=== PATIENT | female | born 1990 | race Caucasian/White ===

== ENCOUNTER 2016-10-26 03:06 | Emergency (ER) | payer OTHER ==
[~2016-10-26 03:06] MED LIST: CIPRO PO; IBUPROFEN PO; KEFLEX500 MG PO; NO HOME MEDICATIONS; PRENATAL VITAMI1 TA3 PO; PRENATAL1 TA1 PO; PYRIDIUM PO; VICODIN 5/500 T1 TAB PO
== END 2016-10-26 03:52 | disposition home or self-care (01) ==
LOC: SED 03:06
DX: T40.1X1A Poisoning by heroin, accidental (unintentional), initial encounter (principal); F17.200 Nicotine dependence, unspecified, uncomplicated; Y92.9 Unspecified place or not applicable
CPT/HCPCS: 99282

== ENCOUNTER 2016-12-17 02:41 | Emergency (ER) | payer OTHER ==
--- NOTE | ~2016-12-17 | EKG ---
PATIENT: DINORA MOONEY UNIT #: [id number] Ventricular Rate: 134 BPM Atrial Rate: 134 BPM P-R Interval: 122 ms QRS Duration: 88 ms Q-T Interval: 316 ms QTC Calculation(Bezet): 471 ms P [place]: 75 degrees Calculated R [place]: 21 degrees Calculated T [place]: 56 degrees Diagnosis Line: Sinus tachycardia Diagnosis Line: Possible Left atrial enlargement Diagnosis Line: Borderline ECG Diagnosis Line: When compared with ECG of 07-JUN-2016 23:12, Diagnosis Line: Vent. rate has increased BY 47 BPM Diagnosis Line: T wave amplitude has decreased in Inferior leads Diagnosis Line: Confirmed by WERO CM MD ([id number]) on Diagnosis Line: 12/17/2016 3:04:58 PM INTERPRETING : SAMAN
== END 2016-12-17 13:08 | disposition home or self-care (01) ==
LOC: CED 02:41
DX: F41.0 Panic disorder [episodic paroxysmal anxiety] (principal); S00.33XA Contusion of nose, initial encounter; F15.129 Other stimulant abuse with intoxication, unspecified; F17.200 Nicotine dependence, unspecified, uncomplicated; Z86.19 Personal history of other infectious and parasitic diseases; Y04.0XXA Assault by unarmed brawl or fight, initial encounter
CPT/HCPCS: 93005; 96361; 96374; 99284; J2060

== ENCOUNTER 2016-12-17 14:00 | Inpatient (IN) | payer OTHER ==
--- NOTE | ~2016-12-17 | PN ---
Unit #: [id number] #: [id number] Patient: DINORA HOLM [id number] [facility] [address] [place] [address] [id number] I MR#: [id number] NAME: DINORA HOLM ROOM: P214 Age: 26 Sex: F Admission Date: 12/17/2016 : 1990 Attending Physician: Louise Riley M.D. Admitting Physician: Louise Riley M.D. Primary Care Physician: Primary Care Physician Carol BRITT NOTES DATE 12/19/2016 DISCUSSION Ms. Holm is a 26-year-old white female who was seen today and chart was reviewed and case was discussed with the staff. She remains anxious, withdrawn, depressed and seclusive to herself and has been . She has been taking the medications and tolerating them fairly well with no reported side effects. MENTAL STATUS EXAMINATION Young white female who was casually dressed with fair personal hygiene, appears to be in no acute distress or discomfort. She was awake and alert on interaction with intact orientation. Her mood was anxious with congruent affect. She denies any suicidal or homicidal ideations. Her insight and judgement remains slightly impaired. TREATMENT PLAN 1. We will continue her on her current treatment protocol. We will monitor her response to the medication and make further adjustments as needed. 2. We will continue to follow up. Dictated by... Jessie Santos/omayra TD: 12/20/2016 02:51 JOB #: [id number] Unit #: [id number] #: [id number] Patient: DINORA HOLM ODALISARBEN PROGRESS NOTES Page 1 of 1 X Louise Riley MD PROGRESS NOTE
--- NOTE | ~2016-12-17 | PN ---
Unit #: [id number] #: [id number] Patient: DINORA HOLM [id number] [facility] [address] [place] [address] [id number] I MR#: [id number] NAME: DINORA HOLM ROOM: P214 Age: 26 Sex: F Admission Date: 12/17/2016 : 1990 Attending Physician: Louise Riley M.D. Admitting Physician: Louise Riley M.D. Primary Care Physician: Primary Care Physician Carol REILLY PROGRESS NOTES DATE OF SERVICE 12/21/2016 DISCUSSION Ms. Holm is a 26-year-old white female who was seen today. Chart was reviewed and case was discussed with the staff. She remains anxious, withdrawn, and rather seclusive to herself though has been wanting to leave and has been pushing for that. Meanwhile, she has been taking the medications and tolerating them fairly well with no reported side effects. MENTAL STATUS EXAMINATION Young white female who is casually dressed with fair personal hygiene, appears to be in no acute distress or discomfort. The patient was awake and alert on interaction with intact orientation. Her mood is anxious with congruent affect. She denies any suicidal or homicidal ideations. Her insight and judgment remain slightly impaired. TREATMENT PLAN 1. We will continue her on her current treatment protocol. We will monitor her response to the medications and make further adjustments as needed. 2. We will continue to follow up. Dictated by... Louise Riley M.D. IAA/bzg TD: 12/21/2016 14:03 JOB #: [id number] [facility] PROGRESS NOTES Page 1 of 1 X Louise Riley MD PROGRESS NOTE
--- NOTE | ~2016-12-17 | PN ---
Unit #: [id number] #: [id number] Patient: DINORA HOLM [id number] [facility] [address] [place] [address] [id number] I MR#: [id number] NAME: DINORA HOLM ROOM: P214 Age: 26 Sex: F Admission Date: 12/17/2016 : 1990 Attending Physician: Louise Riley M.D. Admitting Physician: Louise Riley M.D. Primary Care Physician: Primary Care Physician Carol REILLY PROGRESS NOTES DATE 12/18/2016 DISCUSSION Ms. Holm is a 26-year-old white female with mood disorder and psychosis who was seen today and chart was reviewed and case was discussed with the staff. She remains anxious, withdrawn, disorganized and seclusive to herself and unable to carry on any meaningful conversation. Meanwhile, she has been taking medications and tolerating them fairly well. MENTAL STATUS EXAMINATION Young white female who was casually dressed with fair personal hygiene, appears to be in no acute distress or discomfort. She was awake and alert with intact orientation. Her mood was anxious with congruent affect. She denies any suicidal or homicidal ideations. Her insight and judgement remains slightly impaired. TREATMENT PLAN 1. We will continue her on her current medications and treatment protocol. We will monitor her response to the medication and make further adjustments as needed. 2. We will continue to follow up. Dictated by... Jessie Santos/omayra TD: 12/19/2016 02:57 JOB #: [id number] Unit #: [id number] #: [id number] Patient: DINORA HOLM ODALISARBEN PROGRESS NOTES Page 1 of 1 X Louise Riley MD PROGRESS NOTE
--- NOTE | ~2016-12-17 | PN ---
Unit #: [id number] #: [id number] Patient: DINORA HOLM [id number] [facility] [address] [place] [address] [id number] I MR#: [id number] NAME: DINORA HOLM ROOM: P214 Age: 26 Sex: F Admission Date: 12/17/2016 : 1990 Attending Physician: Louise Riley M.D. Admitting Physician: Louise Riley M.D. Primary Care Physician: Primary Care Physician Carol BRITT NOTES DATE December 22, 2016 DISCUSSION Ms. Holm is a 26-year-old white female, who was seen today and chart was reviewed and the case was discussed with the staff. She has been anxious, withdrawn, but has not shown any agitation and appears to be showing improvement in mood and functioning, as well as psychosis. MENTAL STATUS EXAMINATION Young white female, who was casually dressed with fair personal hygiene and appears to be in no acute distress or discomfort. She was awake and alert with intact orientation. The patient denies any suicidal or homicidal ideations. Her insight and judgment remain slightly impaired. TREATMENT PLAN We will continue her on her current medications and treatment protocol, and will consider discharge tomorrow. Dictated by... Jessie Santos/carmelo TD: 12/23/2016 09:55 JOB #: [id number] [facility] PROGRESS NOTES Page 1 of 1 X Louise Riley MD X PROGRESS NOTE
--- NOTE | ~2016-12-17 | DS ---
Unit #: [id number] #: [id number] [facility]: [facility] [id number] [facility] [address] [place] [address] [id number] MR#: [id number] NAME: DINORA MOONEY ROOM: [facility] Age: 26 Sex: F Admission Date: 12/17/2016 : 1990 Discharge Date: 12/23/2016 Attending Physician: Louise Riley M.D. Primary Care Physician: Primary Care Physician No DISCHARGE SUMMARY IDENTIFYING DATA Ms. Mendez is a 26-year-old white female who was brought to the hospital with acute psychosis. DISCHARGE DIAGNOSES Psychiatric: Methamphetamine dependence, moderate; methamphetamine-induced psychosis. Medical: None. Stressors: Moderate psychosocial stressors. HISTORY OF PRESENT ILLNESS Please see initial psychiatric evaluation for details. PAST PSYCHIATRIC HISTORY Please see initial psychiatric evaluation for details. PAST MEDICAL HISTORY Please see initial psychiatric evaluation for details. HOSPITAL COURSE The patient was admitted to the adult chemical dependency unit at [facility] [place] and was oriented to the hospital environment. Routine p.r.n. medications were initiated, and she was started back on her home medications and was seen to be acutely psychotic upon presentations and as such, it was started on Risperdal to help with psychosis and was closely monitored. She was taking the medications regularly and was tolerating them fairly well and was able to show a decent therapeutic response and was able to show complete resolution of her psychosis and as such, it was decided that she will be discharged home and will continue treatment on an outpatient basis. DISCHARGE MEDICATIONS None. DISCHARGE CONDITION Stable. PROGNOSIS Guarded. Dictated by... Louise Riley M.D. Unit #: [id number] #: [id number] Patient: DINORA MOONEY IAA/modl TD: 12/23/2016 23:08 JOB #: [id number] DISCHARGE SUMMARY Page 1 of 1 X Louise Riley MD X DISCHARGE SUMMARY
--- NOTE | ~2016-12-17 | PN ---
Unit #: [id number] #: [id number] Patient: DINORA HOLM [id number] [facility] [address] [place] [address] [id number] MR#: [id number] NAME: DINORA HOLM ROOM: P214 Age: 26 Sex: F Admission Date: 12/17/2016 : 1990 Attending Physician: Louise Riley M.D. Admitting Physician: Louise Riley M.D. Primary Care Physician: Primary Care Physician Carol REILLY PROGRESS NOTES DATE 12/20/2016 DISCUSSION Ms. Holm is a 26-year-old white female who was seen today and chart was reviewed and case was discussed with the staff. She has been anxious, withdrawn and rather seclusive to herself. Meanwhile, she has been cooperative with treatment and has been showing some improvement though still has been anxious, withdrawn, unkempt, disheveled and rather seclusive to herself. Meanwhile, she has been taking medications and tolerating them fairly well with no reported side effects. MENTAL STATUS EXAMINATION Young white female who was casually dressed with fair personal hygiene and appears to be in no acute distress or discomfort. She was awake and alert on interaction with intact orientation. Her mood was anxious with congruent affect. She denies any suicidal or homicidal ideation. Her insight and judgement remains slightly impaired. TREATMENT PLAN 1. Will continue on current medications and treatment protocol. Will monitor her response and make further adjustments as needed. 2. Will continue to follow up. Dictated by... Jessie Santos/shantel TD: 12/20/2016 21:38 JOB #: [id number] Unit #: [id number] #: [id number] Patient: DINORA HOLM PROGRESS NOTES Page 1 of 1 X Louise Riley MD PROGRESS NOTE
--- NOTE | ~2016-12-17 | HP ---
Unit #: [id number] #: [id number] Patient: DINORA MOONEY [id number] [place] [address] [id number] I MR#: [id number] NAME: DINORA MOONEY ROOM: P214 Age: 26 Sex: F Admission Date: 12/17/2016 : 1990 Attending Physician: Louise Riley M.D. Admitting Physician: Louise Riley M.D. Primary Care Physician: Primary Care Physician No HISTORY AND PHYSICAL HISTORY OF PRESENT ILLNESS The patient is a 26-year-old female admitted to [address] [place] [address] on 12/17/2016 to detox from methamphetamine. PAST MEDICAL HISTORY The patient denies. PAST SURGICAL HISTORY The patient denies. SOCIAL HISTORY She is unemployed. She lives with a friend. She smokes one pack of cigarettes daily and uses heroin and methamphetamines on a daily basis. FAMILY MEDICAL HISTORY Noncontributory. ALLERGIES No known drug allergies. CURRENT MEDICATIONS Include Risperdal. REVIEW OF SYSTEMS CONSTITUTIONAL: No fever or chills. HEENT: Denies any sore throat, ear pain or runny nose. CARDIOVASCULAR: Denies chest pain, irregular heart rhythm or palpitations. CHEST: Denies shortness of breath or cough. No hemoptysis. GASTROINTESTINAL: Denies nausea, vomiting, diarrhea or chronic constipation. ENDOCRINE: Denies history of increased thirst or urination. No recent significant weight loss or gain. GENITOURINARY: Denies dysuria, frequency, or hematuria. SKIN: Denies any rashes. HEMATOLOGIC: Denies history of increased bleeding or bruising. MUSCULOSKELETAL: Denies any hot, swollen joints. No generalized muscle pain. NEUROLOGIC: Denies problems with vision or speech. No frequent, severe headaches. No numbness, tingling or weakness in any extremities. Denies loss of bladder or bowel control. PHYSICAL EXAM GENERAL: She is awake, alert and oriented in no acute distress. Unit #: [id number] #: [id number] Patient: DINORA MOONEY VITAL SIGNS: Temperature 98.0, heart rate 120, respiration 20, blood pressure 108/74. HEIGHT: 5'6". WEIGHT: 165 pounds. SKIN: Warm and dry without rash or lesion. HEENT: Normocephalic. TMs not viewed. Oral and nasal passages clear. Conjunctivae clear. PERRLA. EOMs intact. NECK: Supple without lymphadenopathy or thyromegaly. HEART: Regular rate and rhythm without murmur. LUNGS: Clear. ABDOMEN: Soft, nontender. : Not done. EXTREMITIES: No evidence of cyanosis, clubbing or edema. Moves all without focal deficit. NEUROLOGICAL: Grossly within normal limits. Cranial Nerves: II: Visual galicia are intact. III, IV AND : Extraocular movements are intact. Pupils are equal, round and reactive to light. V: Facial sensation is grossly normal. VII: Facial movements and expression are normal. VIII: Auditory acuity grossly intact. IX, X: Uvula is midline. Phonation is normal. XI: Patient shrugs shoulders and turns head normally. XII: Tongue protrudes in the midline. Sensory and Motor Function: Sensory and motor sensation is grossly normal. Motor: moves all extremities well. IMPRESSION 1. Psychiatric admission. 2. Polysubstance use. RECOMMENDATIONS Psychiatric per psychiatrist. MEDICAL: No contraindication to participate in facility activities. MEDICAL PROGNOSIS Good. MEDICAL CONDITION Stable. Dictated by... Gurvinder Coleman/omayra TD: 12/18/2016 21:29 JOB #: [id number] Unit #: [id number] #: [id number] Patient: DINORA MOONEY HISTORY AND PHYSICAL Page 1 of 1 X CHAS MOHR APRN HISTORY AND PHYSICAL
[2016-12-20 12:47] LABS: URINE APPEARANCE CLOUDY; URINE BILIRUBIN NEG (NEG); URINE BLOOD NEG (NEG); URINE COLOR YELLOW; URINE GLUCOSE NORM (NORM); URINE KETONE NEG (NEG); URINE LEUKOCYTE ESTERASE NEG (NEG); URINE NITRATE NEG (NEG); URINE PH 6.5 (5-8); URINE PROTEIN NEG (NEG); URINE UROBILINOGEN NORM (NORM)
[2016-12-20 13:05] LABS: AMPHETAMINE POS (NEG); BARBITURATES NEG (NEG); BENZODIAZEPINES NEG (NEG); COCAINE NEG (NEG); MARIJUANA POS (NEG); OPIATES NEG (NEG); TRICYCLIC ANTIDEPRESSANTS NEG (NEG); U METHADONE NEG (NEG)
== END 2016-12-23 13:00 | disposition home or self-care (01) | DRG 897 ==
LOC: P2S 16:52
PROVIDERS: Psychiatry & Neurology Psychiatry
DX: F15.259 Other stimulant dependence with stimulant-induced psychotic disorder, unspecified (principal); F17.210 Nicotine dependence, cigarettes, uncomplicated
CPT/HCPCS: 80307; 81003

== ENCOUNTER 2017-01-02 20:54 | Emergency (ER) | payer OTHER ==
--- NOTE | ~2017-01-02 | CT71 ---
[facility] A Service [facility] RADIOLOGY TEXT RESULTS PATIENT: DINORA MOONEY LOCATION: SED : [birth year] UNIT #: [id number] AGE: [address]: Geovanna iKng MD SEX: F ORDER DR: [id number] [address] [address] [id number] MR#: [id number] Acc #: [id number] NAME: DINORA MOONEY : 1990 SEX: F STUDY DATE/TIME: 01/02/2017 22:59 UNIT: SED ROOM: STUDY DESCRIPTION: CT Head Wo Contrast Attending Physician: Geovanna King M.D. Ordering Physician: Geovanna King M.D. Primary Care Physician: No Primary Care Physician MEDICAL IMAGING REPORT This report is preliminary unless electronic signature is present. EXAM CT scan of the head without contrast. INDICATION Hallucinations, visual and auditory in nature with confusion. The patient was found in parking lot tonight. TECHNIQUE Unenhanced images were obtained of the brain. This CT exam was performed with one or more of the following radiation dose reduction techniques: Automatic exposure control, adjustment of mA and/or kV according to patient size, and iterative reconstruction. COMPARISON 07/03/2016 FINDINGS The study is degraded by motion. The ventricles and subarachnoid spaces are normal. There are no masses or extraaxial fluid collections or hemorrhages. IMPRESSION The study is degraded by motion but appears normal. Dictated by... Luke Cunningham M.D. THIS IS AN ELECTRONICALLY VERIFIED REPORT Luke Cunningham M.D. at 01/03/2017 1:43 PM FEL/bd [facility] A Service [facility] RADIOLOGY TEXT RESULTS PATIENT: DINORA MOONEY LOCATION: SED : [birth year] UNIT #: [id number] AGE: [address]: Geovanna King MD SEX: F ORDER DR: TD: 01/03/2017 12:55 JOB #: [id number] MEDICAL IMAGING REPORT Page 1 of 1
[2017-01-02 22:48] LABS: URINE APPEARANCE HAZY; URINE BLOOD TRACE-LYSED (NEG); URINE COLOR YELLOW; URINE GLUCOSE NEG (NORM); URINE LEUKOCYTE ESTERASE TRACE (NEG); URINE NITRATE NEG (NEG); URINE PROTEIN 1+ (NEG); URINE SPECIFIC GRAVITY >=1.030 (1.003-1.035)
[2017-01-02 22:50] LABS: BASOPHIL% 0.5 % (0-2.5); EOSINOPHIL% 0.4 % (0.0-7.0); HEMATOCRIT 37.2 % (35.0-45.0); HEMOGLOBIN 12.8 gm/dL (12.0-16.0); LYMPHOCYTE# 1.5 X10e3 (1.0-3.5); LYMPHOCYTE% 18.1 % (17.0-45.0); MEAN CELL VOLUME 87.1 FL (83-96); MEAN CORPUSCULAR HGB CONC 34.5 g/dL (30-36); MEAN PLATELET VOLUME 7.6 FL (6.5-11.5); MONOCYTE# 0.9 X10e3 (0-1.0); MONOCYTE% 10.3 % (3.0-12.0); NEUTROPHIL% 70.7 % (40-75); PLATELET COUNT 363 X10e3 (140-420); RED BLOOD COUNT 4.27 X10e (3.90-5.30); RED CELL DISTRIBUTION WIDTH 16.2 % (11.0-15.5); WHITE BLOOD COUNT 8.5 X10e3 (4.0-10.5)
[2017-01-02 22:51] LABS: DIFF IND NO
[2017-01-02 22:53] LABS: MICRO INDICATED? YES; URINE BILIRUBIN NEG (NEG); URINE KETONE 3+ (NEG); URINE SOURCE CATH
[2017-01-02 22:54] LABS: CULTURE INDICATED? YES; URINE BACTERIA 1+ (NEG); URINE MUCUS PRESENT; URINE SQUAMOUS EPITHELIAL CELL OCCAS /[HPF]
[2017-01-02 22:58] LABS: AMPHETAMINE POS (NEG); BARBITURATES NEG (NEG); BENZODIAZEPINES NEG (NEG); COCAINE NEG (NEG); MARIJUANA POS (NEG); OPIATES POS (NEG); TRICYCLIC ANTIDEPRESSANTS NEG (NEG); U METHADONE NEG (NEG)
[2017-01-02 23:05] LABS: ACETAMINOPHEN <10 ug/mL; ALBUMIN SERUM 4.6 g/dL (3.5-5.0); ALCOHOL BLOOD <5 mg/dL (0); ALKALINE PHOSPHATASE 51 U/L (32-92); ALT (SGPT) 17 U/L (10-40); AST (SGOT) 34 U/L (10-42); BILIRUBIN, DIRECT 0.2 mg/dL (0.0-0.2); BILIRUBIN,INDIRECT 0.8 mg/dL (0.0-0.9); BLOOD UREA NITROGEN 23 mg/dL (9-23); BUN/CREATININE RATIO 25.55; CALCIUM SERUM 9.4 mg/dL (8.4-10.2); CARBON DIOXIDE 25 mmol/L (22-31); CHLORIDE 96 mmol/L (100-111); CREATININE SERUM 0.9 mg/dL (0.6-1.4); GLOM FILT RATE Estimated 87.1 mL/min (>60); GLUCOSE FASTING 88 mg/dL (70-110); POTASSIUM 3.4 mmol/L (3.5-5.1); PROTEIN TOTAL SERUM 8.3 g/dL (6.0-8.3); SALICYLATE <4.0 mg/dL; SODIUM 136 mmol/L (135-145)
== END 2017-01-03 03:35 | disposition home or self-care (01) ==
LOC: SED 20:54
PROVIDERS: Emergency Medicine
DX: F15.951 Other stimulant use, unspecified with stimulant-induced psychotic disorder with hallucinations (principal); F17.210 Nicotine dependence, cigarettes, uncomplicated; Z98.890 Other specified postprocedural states
CPT/HCPCS: 36415; 51701; 70450; 80048; 80076; 80307; 81003; 84703; 85025; 87086; 96360; 96361; 96372; 99285; G0480; J3486

== ENCOUNTER 2017-01-04 18:03 | Emergency (ER) | payer OTHER ==
--- NOTE | ~2017-01-04 | EKG ---
PATIENT: DINORA MOONEY UNIT #: [id number] Ventricular Rate: 105 BPM Atrial Rate: 105 BPM P-R Interval: 126 ms QRS Duration: 80 ms Q-T Interval: 338 ms QTC Calculation(Bezet): 446 ms P [place]: 78 degrees Calculated R [place]: 54 degrees Calculated T [place]: 68 degrees Diagnosis Line: Sinus tachycardia Diagnosis Line: Otherwise normal ECG Diagnosis Line: When compared with ECG of 17-DEC-2016 03:03, Diagnosis Line: No significant change was found Diagnosis Line: Confirmed by MELBA BELLO MD ([id number]) on Diagnosis Line: 01/05/2017 10:41:11 AM INTERPRETING MD: ACE CANNON
[2017-01-04 19:03] LABS: BASOPHIL% 0.2 % (0-2.5); HEMATOCRIT 36.3 % (35.0-45.0); HEMOGLOBIN 11.7 gm/dL (12.0-16.0); LYMPHOCYTE% 6.6 % (17.0-45.0); MEAN CELL VOLUME 88.5 FL (83-96); MEAN CORPUSCULAR HEMOGLOBIN 28.6 PG (28-34); MEAN CORPUSCULAR HGB CONC 32.3 g/dL (30-36); MEAN PLATELET VOLUME 7.7 FL (6.5-11.5); MONOCYTE# 1.7 X10e3 (0-1.0); MONOCYTE% 11.5 % (3.0-12.0); NEUTROPHIL# 11.8 X10e3 (1.5-7.1); NEUTROPHIL% 81.7 % (40-75); PLATELET COUNT 309 X10e3 (140-420); RED CELL DISTRIBUTION WIDTH 16.3 % (11.0-15.5)
[2017-01-04 19:07] LABS: DIFF IND NO; WHITE BLOOD COUNT 14.4 X10e3 (4.0-10.5)
[2017-01-04 19:23] LABS: ALBUMIN SERUM 4.6 g/dL (3.5-5.0); ALKALINE PHOSPHATASE 51 U/L (32-92); ALT (SGPT) 14 U/L (10-40); AST (SGOT) 22 U/L (10-42); BILIRUBIN, DIRECT 0.3 mg/dL (0.0-0.2); BILIRUBIN,INDIRECT 1.4 mg/dL (0.0-0.9); BILIRUBIN,TOTAL 1.7 mg/dL (0.2-2.0); BLOOD UREA NITROGEN 11 mg/dL (9-23); BUN/CREATININE RATIO 18.33; CALCIUM SERUM 9.5 mg/dL (8.4-10.2); CARBON DIOXIDE 24 mmol/L (22-31); CHLORIDE 106 mmol/L (100-111); CREATININE SERUM 0.6 mg/dL (0.6-1.4); GLUCOSE FASTING 118 mg/dL (70-110); POTASSIUM 3.1 mmol/L (3.5-5.1); PROTEIN TOTAL SERUM 8.5 g/dL (6.0-8.3); SODIUM 141 mmol/L (135-145)
[2017-01-04 19:26] LABS: ALCOHOL BLOOD <5 mg/dL (0)
[2017-01-04 19:32] LABS: URINE SOURCE CLEAN CATCH
[2017-01-04 19:41] LABS: URINE APPEARANCE TURBID; URINE BLOOD TRACE (NEG); URINE COLOR DK YELLOW; URINE GLUCOSE NEG (NEG); URINE KETONE 2+ (NEG); URINE LEUKOCYTE ESTERASE 1+ (NEG); URINE NITRATE NEG (NEG); URINE PH 5.5 (5-8); URINE PROTEIN 1+ (NEG); URINE SPECIFIC GRAVITY 1.028 (1.003-1.035)
[2017-01-04 19:43] LABS: CULTURE INDICATED? YES; URINE BACTERIA AUWI 2+ (NEGATIVE); URINE SQUAMOUS EPITHELIAL CELL MANY /[HPF]
[2017-01-04 19:54] LABS: URINE BILIRUBIN NEG (NEG)
[2017-01-04 20:01] LABS: U HYALINE CASTS AUWI 0-2 /[LPF]
[2017-01-04 20:03] LABS: AMPHETAMINE POS (NEG); BARBITURATES NEG (NEG); BENZODIAZEPINES NEG (NEG); COCAINE NEG (NEG); MARIJUANA POS (NEG); OPIATES NEG (NEG); TRICYCLIC ANTIDEPRESSANTS NEG (NEG); U METHADONE NEG (NEG)
== END 2017-01-05 06:57 | disposition home or self-care (01) ==
LOC: CED 18:03 → CFTX 18:51 → CED 18:51
PROVIDERS: Emergency Medicine
DX: F15.122 Other stimulant abuse with intoxication with perceptual disturbance (principal); F15.121 Other stimulant abuse with intoxication delirium; N30.00 Acute cystitis without hematuria; E87.6 Hypokalemia
CPT/HCPCS: 36415; 80048; 80076; 80307; 81003; 84703; 85025; 87086; 93005; 96360; 96372; 99285; G0480; J3486

== ENCOUNTER 2017-01-07 04:18 | Emergency (ER) | payer OTHER ==
[~2017-01-07] VITALS: Ht 167.6 cm; Wt 63.5 kg
[2017-01-07] MEDS ORDERED: NO MEDICATIONS (04:45)
== END 2017-01-07 10:55 | disposition home or self-care (01) ==
LOC: SED 04:18
DX: F15.10 Other stimulant abuse, uncomplicated (principal)
CPT/HCPCS: 96372; 99285; J2060; J3486

== ENCOUNTER 2017-02-21 22:22 | Emergency (ER) | payer OTHER ==
[~2017-02-21] VITALS: Ht 165.1 cm; Wt 63.5 kg
--- NOTE | ~2017-02-21 | EKG ---
PATIENT: DINORA MOONEY UNIT #: [id number] Ventricular Rate: 93 BPM Atrial Rate: 93 BPM P-R Interval: 148 ms QRS Duration: 92 ms Q-T Interval: 400 ms QTC Calculation(Bezet): 497 ms P [place]: 60 degrees Calculated R [place]: 41 degrees Calculated T [place]: 68 degrees Diagnosis Line: Normal sinus rhythm Diagnosis Line: Prolonged QT Diagnosis Line: Abnormal ECG Diagnosis Line: No previous ECGs available Diagnosis Line: Confirmed by KELLIE MA MD ([id number]) on 02/22/2017 Diagnosis Line: 7:19:46 PM INTERPRETING MD: FRANCESCA CANNON
[~2017-02-21 22:22] MED LIST changes: +NO MEDICATIONS
[2017-02-22 00:17] LABS: BASOPHIL% 0.4 % (0-2.5); EOSINOPHIL% 0.2 % (0.0-7.0); HEMATOCRIT 37.1 % (35.0-45.0); HEMOGLOBIN 12.4 gm/dL (12.0-16.0); LYMPHOCYTE# 1.9 X10e3 (1.0-3.5); LYMPHOCYTE% 21.9 % (17.0-45.0); MEAN CELL VOLUME 89.6 FL (83-96); MEAN CORPUSCULAR HEMOGLOBIN 29.9 PG (28-34); MEAN CORPUSCULAR HGB CONC 33.4 g/dL (30-36); MEAN PLATELET VOLUME 7.9 FL (6.5-11.5); MONOCYTE# 0.9 X10e3 (0-1.0); MONOCYTE% 10.2 % (3.0-12.0); NEUTROPHIL# 5.9 X10e3 (1.5-7.1); NEUTROPHIL% 67.3 % (40-75); PLATELET COUNT 379 X10e3 (140-420); RED BLOOD COUNT 4.14 X10e (3.90-5.30); RED CELL DISTRIBUTION WIDTH 15.1 % (11.0-15.5); WHITE BLOOD COUNT 8.8 X10e3 (4.0-10.5)
[2017-02-22 00:21] LABS: DIFF IND NO
[2017-02-22 00:48] LABS: ACETAMINOPHEN <10 ug/mL; ALBUMIN SERUM 4.9 g/dL (3.5-5.0); ALCOHOL BLOOD <5 mg/dL (0); ALKALINE PHOSPHATASE 52 U/L (32-92); ALT (SGPT) 18 U/L (10-40); AST (SGOT) 22 U/L (10-42); BILIRUBIN, DIRECT 0.1 mg/dL (0.0-0.2); BILIRUBIN,INDIRECT 1.2 mg/dL (0.0-0.9); BILIRUBIN,TOTAL 1.3 mg/dL (0.2-2.0); BLOOD UREA NITROGEN 32 mg/dL (9-23); BUN/CREATININE RATIO 35.55; CALCIUM SERUM 9.9 mg/dL (8.4-10.2); CARBON DIOXIDE 20 mmol/L (22-31); CHLORIDE 103 mmol/L (100-111); CPK (CREATINE PHOSPHOKINASE) 96 IU/L (26-140); CREATININE SERUM 0.9 mg/dL (0.6-1.4); GLOM FILT RATE Estimated 87.1 mL/min (>60); GLUCOSE FASTING 100 mg/dL (70-110); POTASSIUM 3.1 mmol/L (3.5-5.1); PROTEIN TOTAL SERUM 8.5 g/dL (6.0-8.3); SALICYLATE <4.0 mg/dL; SODIUM 138 mmol/L (135-145)
[2017-02-22 01:28] LABS: URINE SOURCE CLEAN CATCH
[2017-02-22 01:33] LABS: URINE APPEARANCE CLEAR; URINE BLOOD NEG (NEG); URINE COLOR DK YELLOW; URINE GLUCOSE NEG (NEG); URINE KETONE 1+ (NEG); URINE LEUKOCYTE ESTERASE TRACE (NEG); URINE NITRATE NEG (NEG); URINE PH 5.5 (5-8); URINE PROTEIN 1+ (NEG); URINE SPECIFIC GRAVITY 1.031 (1.003-1.035)
[2017-02-22 01:36] LABS: CULTURE INDICATED? YES; URINE BACTERIA AUWI NEG (NEGATIVE); URINE SQUAMOUS EPITHELIAL CELL OCC /[HPF]
[2017-02-22 01:44] LABS: AMPHETAMINE POS (NEG); BARBITURATES NEG (NEG); BENZODIAZEPINES NEG (NEG); COCAINE NEG (NEG); MARIJUANA POS (NEG); OPIATES NEG (NEG); TRICYCLIC ANTIDEPRESSANTS NEG (NEG); U METHADONE NEG (NEG)
[2017-02-22 01:48] LABS: URINE BILIRUBIN NEG (NEG)
[2017-02-22 01:49] LABS: URINE MUCUS PRESENT
== END 2017-02-22 08:19 | disposition home or self-care (01) ==
LOC: CED 22:22
PROVIDERS: Emergency Medicine
DX: F19.122 Other psychoactive substance abuse with intoxication with perceptual disturbances (principal); F15.129 Other stimulant abuse with intoxication, unspecified
CPT/HCPCS: 36415; 51701; 80048; 80076; 80307; 81003; 82550; 82947; 85025; 87086; 93005; 96360; 96372; 99284; G0480; J2310; J3486